=== PATIENT | male | born 1980 | race Caucasian/White ===

== ENCOUNTER → 2018-03-04 | Outpatient (CLI) | payer BC ==
--- NOTE | 2018-03-04 16:56 | XR ---
EXAMINATION TYPE: XR lumbar spine 2 or 3V DATE OF EXAM: 03/04/2018 COMPARISON: NONE HISTORY: Back pain TECHNIQUE: 3 views FINDINGS: Lumbar vertebra have normal alignment. Posterior elements are intact. Sacroiliac joints are intact. IMPRESSION: Negative lumbar spine exam. No fracture.
== END | disposition home or self-care (01) ==
LOC: RADXRMAIN 16:31
PROVIDERS: ATTEND Family Medicine
DX: M54.5 Low back pain (principal)
CPT/HCPCS: 72100

== ENCOUNTER → 2018-03-12 | Outpatient (CLI) | payer BC ==
--- NOTE | 2018-03-12 14:20 | XR ---
EXAMINATION TYPE: XR thoracic spine complete DATE OF EXAM: 03/12/2018 COMPARISON: Lumbar spine 03/04/2018 HISTORY: Back pain x1 week TECHNIQUE: Three-view thoracic spine FINDINGS: 11 thoracic type vertebral bodies are present. There may be a T12 level vertebral level pre sent on the lumbar spine images of 03/04/2018 Disc heights appear preserved. Vertebral body heights are preserved. Alignment appears normal IMPRESSION: 1. Thoracic spine as visualized appears normal
== END | disposition home or self-care (01) ==
LOC: RADXRMAIN 12:11
PROVIDERS: ATTEND Family Medicine
DX: M54.6 Pain in thoracic spine (principal)
CPT/HCPCS: 72072

== ENCOUNTER 2019-04-05 15:04 | Emergency (ER) | payer BC ==
[2019-04-05 15:10] VITALS: BP 136/93; PULSE 86; RESP 18; TEMP 97.9
--- NOTE | 2019-04-05 15:37 | ED ---
General Adult HPI - General Source: patient, RN notes reviewed Mode of arrival: ambulatory Limitations: no limitations <Maikel Kebede - Last Filed: 04/05/19 15:36> <Dilan Durand - Last Filed: 04/05/19 18:47> - General Chief complaint: Psychiatric Symptoms Stated complaint: Mental Health Time Seen by Provider: 04/05/19 15:06 - History of Present Illness Initial comments: Patient is a pleasant 8-year-old male presenting to the emergency department for depression. Patient states he has been depressed for a while and has had several stressors. Patient does admit to writing text messages that somebody might is interpreted as him having thoughts of harming himself. Patient states this was not his intention. Patient admits to feeling depressed and questions at times what is there to before however denies having thoughts of self-harm or wanting to hurt himself. Patient denies suicidal ideation. Patient denies homicidal ideation. No alcohol use. Occasional marijuana. No other street drugs. No physical complaints. No hallucinations. (Maikel Kebede) - Related Data Home Medications Medication Instructions Recorded Confirmed No Known Home Medications 12/27/15 04/05/19 Allergies Allergy/AdvReac Type Severity Reaction Status Date / Time No Known Allergies Allergy Verified 04/05/19 15:51 Review of Systems ROS Other: All systems not noted in ROS Statement are negative. Constitutional: Denies: fever Eyes: Denies: eye pain ENT: Denies: ear pain Respiratory: Denies: cough Cardiovascular: Denies: chest pain Endocrine: Denies: fatigue Gastrointestinal: Denies: abdominal pain Genitourinary: Denies: dysuria Musculoskeletal: Denies: back pain Skin: Denies: rash Neurological: Denies: weakness <Maikel Kebede - Last Filed: 04/05/19 15:36> ROS Other: All systems not noted in ROS Statement are negative. <Dilan Durand - Last Filed: 04/05/19 18:47> ROS Statement: Those systems with pertinent positive or pertinent negative responses have been documented in the HPI. Past Medical History Past Medical History: No Reported History History of Any Multi-Drug Resistant Organisms: None Reported Additional Past Surgical History / Comment(s): foot surgery Past Psychological History: No Psychological Hx Reported Smoking Status: Current every day smoker Past Alcohol Use History: Occasional Past Drug Use History: Marijuana <DelioMaikel - Last Filed: 04/05/19 15:36> General Exam Limitations: no limitations General appearance: alert, in no apparent distress Head exam: Present: atraumatic Eye exam: Present: normal appearance Neck exam: Present: normal inspection Respiratory exam: Present: normal lung sounds bilaterally Cardiovascular Exam: Present: regular rate, normal rhythm GI/Abdominal exam: Present: soft. Absent: tenderness Extremities exam: Present: normal inspection. Absent: pedal edema Neurological exam: Present: alert Psychiatric exam: Present: normal affect, normal mood Skin exam: Present: normal color <KebedeMaikel - Last Filed: 04/05/19 15:36> Course Vital Signs 04/05/19 15:06 Temperature 97.9 F Pulse Rate 86 Respiratory 18 Rate Blood Pressure 136/93 O2 Sat by Pulse 98 Oximetry Medical Decision Making <Dilan Durand - Last Filed: 04/05/19 18:47> - Medical Decision Making 38 male seen and evaluated by psychiatry, patient can be discharged home (Dilan Durand) - Lab Data Lab Results 04/05/19 04/05/19 Range/Units 15:23 15:23 Urine Color Yellow Urine Appearance Clear (Clear) Urine pH 7.5 (5.0-8.0) Ur Specific [place] 1.012 (1.001-1.035) Urine Protein Negative (Negative) Urine Glucose (UA) Negative (Negative) Urine Ketones Negative (Negative) Urine Blood Negative (Negative) Urine Nitrite Negative (Negative) Urine Bilirubin Negative (Negative) Urine Urobilinogen <2.0 (<2.0) mg/dL Ur Leukocyte Esterase Negative (Negative) Urine Opiates Screen Detected H (NotDetected) Ur Oxycodone Screen Not Detected (NotDetected) Urine Methadone Screen Not Detected (NotDetected) Ur Propoxyphene Screen Not Detected (NotDetected) Ur Barbiturates Screen Not Detected (NotDetected) U Tricyclic Antidepress Not Detected (NotDetected) Ur Phencyclidine Scrn Not Detected (NotDetected) Ur Amphetamines Screen Detected H (NotDetected) U Methamphetamines Scrn Not Detected (NotDetected) U Benzodiazepines Scrn Not Detected (NotDetected) Urine Cocaine Screen Detected H (NotDetected) U Marijuana (THC) Screen Detected H (NotDetected) Disposition <Maikel Kebede - Last Filed: 04/05/19 15:36> Is patient prescribed a controlled substance at d/c from ED?: No <Dilan Durand - Last Filed: 04/05/19 18:47> Clinical Impression: Depression Disposition: HOME SELF-CARE Condition: Good Instructions (If sedation given, give patient instructions): Depression (ED) Referrals: Bahman Dominique MD [Primary Care Provider] - 1-2 days
[2019-04-05 16:04] LABS: Appearance,Urine Clear (Clear); Bilirubin,Urine Negative (Negative); Blood,Urine Negative (Negative); Color,Urine Yellow; Glucose,Urine (UA) Negative (Negative); Ketones,Urine Negative (Negative); Leukocyte Esterase,Urine Negative (Negative); Nitrite,Urine Negative (Negative); PH, Urine 7.5 (5.0-8.0); Protein,Urine Negative (Negative); Specific Gravity,Urine 1.012 (1.001-1.035); Urobilinogen,Urine <2.0 mg/dL (<2.0)
[2019-04-05 16:13] LABS: Amphetamine Screen,Urine Detected (NotDetected); Barbiturate Screen,Urine Not Detected (NotDetected); Benzodiazepines Screen,Urine Not Detected (NotDetected); Cocaine Screen,Urine Detected (NotDetected); Methadone Screen, Urine Not Detected (NotDetected); Opiate Screen,Urine Detected (NotDetected); Oxycodone Screen, Urine Not Detected (NotDetected); Phencyclidine Screen,Urine Not Detected (NotDetected); Tricyclic Antidepressant,Urine Not Detected (NotDetected); Urn Cannabinoid Scrn Detected (NotDetected)
== END 2019-04-05 19:06 | disposition home or self-care (01) ==
LOC: EC 15:04
DX: F32.9 Major depressive disorder, single episode, unspecified (principal); F17.200 Nicotine dependence, unspecified, uncomplicated
CPT/HCPCS: 80306; 81003; 82075; 99284

== ENCOUNTER → 2019-11-27 | Outpatient (CLI) | payer BC ==
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
== END | disposition home or self-care (01) ==
LOC: RADCTMAIN 15:53
PROVIDERS: ATTEND Family Medicine
DX: M54.14 Radiculopathy, thoracic region (principal)
CPT/HCPCS: 72129; Q9967

== ENCOUNTER 2020-11-26 22:03 | Emergency (ER) | payer BC ==
[2020-11-26] MEDS ORDERED: DIPH,PERTUS(ACELL)TETVAC-LF 0.5 ML VIAL IM ONE (22:07)
[2020-11-26] MEDS ORDERED: AMPICILLIN-SULBACTAM 3 GM in SODIUM CHLORIDE 0.9% 100 ML IVPB STA (22:11)
[2020-11-26 22:12] VITALS: TEMP 98.4
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
[2020-11-26 22:27] LABS: Basophils # (A) 0.1 k/uL (0-0.2); Basophils % (A) 1 %; Eosinophils # (A) 0.2 k/uL (0-0.7); Eosinophils % (A) 1 %; HCT 49.8 % (39.0-53.0); HGB 17.7 gm/dL (13.0-17.5); Lymphocytes # (A) 3.2 k/uL (1.0-4.8); Lymphocytes % (A) 24 %; MCH 32.1 pg (25.0-35.0); MCHC 35.6 g/dL (31.0-37.0); MCV 90.1 fL (80.0-100.0); Mean Platelet Volume 6.6; Monocytes # (A) 0.5 k/uL (0-1.0); Monocytes % (A) 4 %; Neutrophils % (A) 69 %; Platelet Count 327 k/uL (150-450); RBC 5.53 m/uL (4.30-5.90); RDW 12.2 % (11.5-15.5); WBC 13.1 k/uL (3.8-10.6)
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
[2020-11-26 22:41] LABS: Potassium 3.9 mmol/L (3.5-5.1)
[2020-11-26 22:42] LABS: Albumin 5.3 g/dL (3.5-5.0); Calcium 9.8 mg/dL (8.4-10.2); Total Bilirubin 0.3 mg/dL (0.2-1.3); Total Protein 8.3 g/dL (6.3-8.2)
[2020-11-26 22:56] LABS: Partial Thromboplastin Time 23.1 sec (22.0-30.0); Prothrombin Time 11.1 sec (9.0-12.0)
[2020-11-26 23:15] VITALS: BP 120/83; PULSE 96; RESP 18
== END 2020-11-26 23:20 | disposition home or self-care (01) ==
LOC: EC 22:03
DX: S01.01XA Laceration without foreign body of scalp, initial encounter (principal); F17.200 Nicotine dependence, unspecified, uncomplicated; X99.8XXA Assault by other sharp object, initial encounter
CPT/HCPCS: 36415; 80053; 85025; 85610; 85730; 80320; 70450; 90715; 99284; 12002; 96365; 90471; J0295

== ENCOUNTER 2023-07-10 12:28 | Emergency (ER) | payer BC, OTHER ==
--- NOTE | 2023-07-10 12:29 | ED ---
General Adult HPI - General Stated complaint: Shingals Time Seen by Provider: 07/10/23 12:29 Source: RN notes reviewed - History of Present Illness Initial comments: 42-year-old male presents emergency department with a chief complaint of a rash. Reports rash that started on his left pinky since spread to his upper arms and upper back. He originally believes that is a shingles however this has lasted 2 weeks. He reports that it miramontes and is itchy. Denies any new product, lotions, soaps or detergents. No one ELSE has The rash. He has not been taking anything for his symptoms. He does report one fever 2 days ago. - Related Data Previous Rx's Medication Instructions Recorded Cephalexin [Keflex] 500 mg PO QID #20 cap 11/26/20 Cephalexin [Keflex] 500 mg PO Q12HR 1 Days #20 cap 07/10/23 Allergies Allergy/AdvReac Type Severity Reaction Status Date / Time No Known Allergies Allergy Verified 07/10/23 12:50 Review of Systems ROS Statement: Those systems with pertinent positive or pertinent negative responses have been documented in the HPI. ROS Other: All systems not noted in ROS Statement are negative. Past Medical History Past Medical History: No Reported History History of Any Multi-Drug Resistant Organisms: None Reported Additional Past Surgical History / Comment(s): foot surgery Past Psychological History: No Psychological Hx Reported Smoking Status: Current every day smoker Past Alcohol Use History: Occasional Past Drug Use History: Marijuana General Exam - General Exam Comments Initial Comments: Visual Physical Exam Vital signs reviewed General: Well-appearing, nontoxic, no acute distress. Head: Normocephalic, atraumatic Eyes: PERRLA, EOMI ENT: Airway patent Chest: Nonlabored breathing Skin: No visual rash, normal skin tone Neuro: Alert and oriented 3 Musculoskeletal: No gross abnormalities General: Alert, in no acute distress Head: atraumatic normocephalic. Eyes PERRL, EOMI intact, mucous membranes moist Respiratory: Lungs clear to auscultation bilaterally Cardiovascular: Heart rate regular rate and rhythm Abdominal: Soft without guarding or rebound Extremities: Normal inspection with full range of motion and normal capillary refill, multiple erythematous, raised, circular lesions half a centimeter on bilateral hands, forearms and upper arms and right side of back. Neuroogic: alert and oriented 3, CN II-XII intact, able to ambulate with steady gait Skin: warm dry and intact with normal color Course Vital Signs 07/10/23 12:47 Temperature 98.0 F Pulse Rate 85 Respiratory 18 Rate Blood Pressure 110/79 O2 Sat by Pulse 97 Oximetry Medical Decision Making - Medical Decision Making I performed the quick note portion of this exam, verbal signature Skye Ortiz PA-C Was pt. sent in by a medical professional or institution (RAEGAN Holbrook, PROBATION SUPERVISOR, urgent care, hospital, or custodial...) When possible be specific @ -[No] Did you speak to anyone other than the patient for history (EMS, parent, family, police, friend...)? What history was obtained from this source @ -[No] Did you review nursing and triage notes (agree or disagree)? Why? @ -[I reviewed and agree with nursing and triage notes] Were old charts reviewed (outside hosp., previous admission, EMS record, old EKG, old radiological studies, urgent care reports/EKG's, custodial records)? Report findings @ -[No old charts were reviewed] Differential Diagnosis (chest pain, altered mental status, abdominal pain women, abdominal pain men, vaginal bleeding, weakness, fever, dyspnea, syncope, headache, dizziness, GI bleed, back pain, seizure, CVA, palpatations, mental health, musculoskeletal)? @ -[not applicable] EKG interpreted by me (3pts min.). @ -[As above] X-rays interpreted by me (1pt min.). @ -[None done] CT interpreted by me (1pt min.). @ -[None done] U/S interpreted by me (1pt. min.). @ -[None done] What testing was considered but not performed or refused? (CT, X-rays, U/S, labs)? Why? @ -[None] What meds were considered but not given or refused? Why? @ -[None] Did you discuss the management of the patient with other professionals (professionals i.e. RAEGAN Holbrook, PROBATION SUPERVISOR, lab, RT, psych nurse, social worker masters, flower cheniller, teacher, security officers and guards, clinical case manager)? Give summary @ -[No] Was smoking cessation discussed for >3mins.? @ -[No] Was critical care preformed (if so, how long)? @ -[No] Were there social determinants of health that impacted care today? How? (Homelessness, low income, unemployed, alcoholism, drug addiction, transportation, low edu. Level, literacy, decrease access to med. care, senior care, rehab)? @ -[No] Was there de-escalation of care discussed even if they declined (Discuss DNR or withdrawal of care, Hospice)? DNR status @ -[No] What co-morbidities impacted this encounter? (DM, HTN, Smoking, COPD, CAD, Cancer, CVA, ARF, Chemo, Hep., AIDS, mental health diagnosis, sleep apnea, morbid obesity)? @ -[None] Was patient admitted / discharged? Hospital course, mention meds given and route, prescriptions, significant lab abnormalities, going to OR and other pertinent info. @ -Discharged. This is a pleasant 42-year-old male who presents the emergency department with a rash. No signs are stable. He is an erythematous, raised, circular rash to bilateral hands, forearms and upper arms and upper back. Patient will be given financial, Benadryl and Pepcid. Patient provided a prescription for triamcinolone cream. Recommend close follow-up with PCP in 1- 2 days. Case is discussed with Dr. gonzalez, ED attending increased critical care Undiagnosed new problem with uncertain prognosis? @ -[No] Drug Therapy requiring intensive monitoring for toxicity (Heparin, Nitro, Insulin, Cardizem)? @ -[No] Were any procedures done? @ -[No] Diagnosis/symptom? @ -RAsh vs. Folliculitis Acute, or Chronic, or Acute on Chronic? @ -Acute Uncomplicated (without systemic symptoms) or Complicated (systemic symptoms)? @ -Uncomplicated Side effects of treatment? @ -[No] Exacerbation, Progression, or Severe Exacerbation? @ -[No] Poses a threat to life or bodily function? How? (Chest pain, [place], NH, pneumonia, PE, COPD, DKA, ARF, appy, cholecystitis, CVA, Diverticulitis, Homicidal, Suicidal, threat to staff... and all critical care pts) @ -Low likelihood Disposition Clinical Impression: Rash, Folliculitis Disposition: HOME SELF-CARE Condition: Stable Additional Instructions: Please watch your symptoms closely Please apply steroid cream until symptoms resolve These things and using any lotions soaps or detergents until symptoms improve Return to the nearest emergency department high fever or worsening rash Prescriptions: Cephalexin [Keflex] 500 mg PO Q12HR 1 Days #20 cap Is patient prescribed a controlled substance at d/c from ED?: No Referrals: Bahman Dominique MD [Primary Care Provider] - 1-2 days Jesús Mac MD [STAFF PHYSICIAN] - 1-2 days Time of Disposition: 15:17
[2023-07-10 13:07] VITALS: BP 110/79; PULSE 85; RESP 18; TEMP 98
[2023-07-10] MEDS ORDERED: methylPREDNISolone SOD SUCCI 125 MG/2 ML VIAL IM ONE (15:07)
[2023-07-10] MEDS ORDERED: diphenhydrAMINE 50 MG/ML 1 ML VIAL IM STA (15:07)
[2023-07-10] MEDS ORDERED: FAMOTIDINE 20 MG TAB PO STA (15:08)
[2023-07-10] MEDS ORDERED: TRIAMCINOLONE ACET 0.1% OINTMENT 80 GM TUBE TOPICAL SCH (15:30)
== END 2023-07-10 15:55 | disposition home or self-care (01) ==
LOC: EC 12:28
DX: L73.9 Follicular disorder, unspecified (principal); R21 Rash and other nonspecific skin eruption; F17.200 Nicotine dependence, unspecified, uncomplicated; F12.90 Cannabis use, unspecified, uncomplicated
CPT/HCPCS: 99282; 96372 ×2; J1200; J2930